=== PATIENT | male | born 1960 | race Caucasian/White ===

== ENCOUNTER 2019-03-22 17:08 | Emergency (ER) | payer OTHER ==
[2019-03-22] MEDS ORDERED: Aspirin 81 MG Tab.Chew PO ONE (17:09)
[2019-03-22] MEDS ORDERED: Sodium Chloride 0.9% 2.5 ML Syringe FLUSH PRN (17:09)
[2019-03-22] MEDS ORDERED: Sodium Chloride 0.9% 10 ML Syringe FLUSH PRN (17:09)
[2019-03-22] MEDS ORDERED: Tenecteplase 50 MG Kit IV STA (17:10)
[2019-03-22] MEDS ORDERED: Clopidogrel 75 MG Tab PO ONE ×2 (17:11→17:14)
[2019-03-22] MEDS ORDERED: Heparin Sodium 5,000 Units/ML Vial IVPUSH ONE (17:11)
[2019-03-22] MEDS ORDERED: Heparin Sod,Pork In 0.45% Nacl 25,000 UNIT/500 ML IV.SOLN IV SCH (17:15)
[2019-03-22] MEDS ORDERED: Tenecteplase 50 MG Kit ONE (17:18)
[2019-03-22] MEDS ORDERED: Morphine 4 MG/ML Syringe IVPUSH ONE (17:19)
[2019-03-22] MEDS ORDERED: Sodium Chloride 0.9% 1,000 ML IV ONE (17:21)
--- NOTE | 2019-03-22 17:24 | EDM.PDOC ---
ED HPI GENERAL MEDICAL PROBLEM - General Chief Complaint: Chest Pain Stated Complaint: CHEST PAIN Time Seen by Provider: 03/22/19 17:19 Source of Information: Reports: Patient History Limitations: Reports: No Limitations - History of Present Illness INITIAL COMMENTS - FREE TEXT/NARRATIVE: HISTORY AND PHYSICAL: History of present illness: Patient is a 58-year-old male who presents to the emergency room with complaints of midsternal chest pain that radiates down his left arm which started approximately 15 minutes prior to arrival. He states the pain had a sudden onset and was not precipitated by any physical activity. He became very diaphoretic, near syncopal and nauseated. He denies any previous history of heart disease. States he is currently taking prednisone for a interstitial lung condition. Otherwise he is healthy and takes no medications on a daily basis. Patient denies any fever, chills, headache, change in vision, syncope. Denies any back pain or cough. Denies any abdominal pain, vomiting, diarrhea, constipation or dysuria. Has not noted any blood in urine or stool. Patient has been eating and drinking appropriately. Review of systems: As per history of present illness and below otherwise all systems reviewed and negative. Past medical history: As per history of present illness and as reviewed below otherwise noncontributory. Surgical history: As per history of present illness and as reviewed below otherwise noncontributory. Social history: See social history for further information Family history: As per history of present illness and as reviewed below otherwise noncontributory. Physical exam: General: Well-developed and well-nourished 58-year-old male. Diaphoretic and in moderate distress. HEENT: Atraumatic, normocephalic, pupils equal and reactive bilaterally, negative for conjunctival pallor or scleral icterus, mucous membranes moist, TMs normal bilaterally, throat clear, neck supple, nontender, trachea midline. No drooling or trismus noted. No meningeal signs. No hot potato voice noted. Lungs: Clear to auscultation, breath sounds equal bilaterally, chest nontender. Heart: S1S2, regular rate and rhythm with tachycardia Abdomen: Soft, nondistended, nontender. Negative for masses. Negative for costovertebral tenderness. Pelvis: Stable nontender. Skin: Intact, warm, and diaphoretic. No lesions or rashes noted. Extremities: Atraumatic, moves all extremities per self without difficulty or deficits, ambulatory. Neurovascular unremarkable. Neuro: Awake, alert, oriented. Cranial nerves II through XII unremarkable. Cerebellum unremarkable. Motor and sensory unremarkable throughout. Exam nonfocal. Notes: Dr Robertson was directly involved in this case. EKG shows ST elevation in V2, V3, V4 - patient is aware of the significance of the EKG and patient presentation and the likelihood of needing transfer to a larger facility. He is agreeable to plan of care. We did review contraindications for receiving TNKase. Patient meets criteria. Dr Vaughan, rate and cost analyst at [facility], was consulted on this case. Patient will be given TNKase prior to transfer. Diagnostics: CBC, CMP, INR, CXR, Troponin Therapeutics: IV fluids, ASA, Heparin, Plavix, TNkase, Morphine Impression: STEMI Plan: Transfer to [facility] via [facility] Definitive disposition and diagnosis as appropriate pending reevaluation and review of above. Onset: Today Duration: Minutes: Location: Reports: Chest Chest Pain Score (Numeric/FACES): 7 - Related Data Allergies Allergy/AdvReac Type Severity Reaction Status Date / Time No Known Allergies Allergy Verified 03/22/19 17:14 Past Medical History - Past Health History Medical/Surgical History: Denies Medical/Surgical History - Infectious Disease History Infectious Disease History: Reports: None Social & Family History - Family History Family Medical History: Noncontributory - Tobacco Use Smoking Status *Q: Never Smoker - Recreational Drug Use Recreational Drug Use: No ED ROS GENERAL - Review of Systems Review Of Systems: ROS reveals no pertinent complaints other than HPI. ED EXAM, GENERAL - Physical Exam Exam: See Below (See dictation) Course - Vital Signs Last Recorded V/S: Last Vital Signs Temp 98.3 F 03/22/19 17:14 Pulse 114 H 03/22/19 17:14 Resp 20 03/22/19 17:14 BP 152/104 H 03/22/19 17:14 Pulse Ox 99 03/22/19 17:14 - Orders/Labs/Meds Orders: Active Orders 24 hr Category Date Time Status Cardiac Monitoring [RC] . DIRECTED Care 03/22/19 17:09 Active EKG Documentation Completion [RC] STAT Care 03/22/19 17:10 Active Oxygen Therapy [RC] ASDIRECTED Care 03/22/19 17:09 Active Chest 1V Frontal [CR] Stat Exams 03/22/19 17:09 Ordered CBC WITH AUTO DIFF [HEME] Stat Lab 03/22/19 17:09 Ordered COMPREHENSIVE METABOLIC PN,CMP [CHEM] Stat Lab 03/22/19 17:09 Ordered INR,PT,PROTHROMBIN TIME [COAG] Stat Lab 03/22/19 17:09 Ordered TROPONIN I [CHEM] Stat Lab 03/22/19 17:09 Ordered Heparin Sod,Pork In 0.45% Nacl [Heparin-1/2Ns 25,000 Med 03/22/19 17:15 Ordered Units/500] 25,000 unit in 500 ml IV TITRATE Nitroglycerin/D5W [Nitroglycerin 25 MG/D5W 250 ML] Med 03/22/19 17:30 Ordered 25 mg in 250 ml IV TITRATE Sodium Chloride 0.9% [Normal Saline] 1,000 ml Med 03/22/19 17:21 Active IV .Bolus Sodium Chloride 0.9% [Saline Flush] Med 03/22/19 17:09 Active 10 ml FLUSH ASDIRECTED PRN Sodium Chloride 0.9% [Saline Flush] Med 03/22/19 17:09 Active 2.5 ml FLUSH ASDIRECTED PRN Saline Lock Insert [OM.PC] Stat Oth 03/22/19 17:09 Ordered Medication Orders Heparin Sodium/Sodium Chloride (Heparin-1/2ns 25,000 Units/500) 25,000 unit in 500 mls @ 0 mls/hr IV TITRATE IRINA; Protocol Nitroglycerin/Dextrose (Nitroglycerin 25 Mg/D5w 250 Ml) 25 mg in 250 mls @ 3 mls/hr IV TITRATE IRINA; Protocol Sodium Chloride (Normal Saline) 1,000 mls @ 999 mls/hr IV .Bolus ONE Stop: 03/22/19 18:21 Last Admin: 03/22/19 17:23 Dose: 999 mls/hr Sodium Chloride (Saline Flush) 10 ml FLUSH ASDIRECTED PRN PRN Reason: Keep Vein Open Sodium Chloride (Saline Flush) 2.5 ml FLUSH ASDIRECTED PRN PRN Reason: Keep Vein Open Meds: Medications Generic Name Dose Route Start Last Admin Trade Name Freq PRN Reason Stop Dose Admin Heparin Sodium/Sodium Chloride 25,000 unit in 500 mls @ 0 mls/hr 03/22/19 17: 15 Heparin-1/2ns 25,000 Units/500 IV TITRATE IRINA Protocol 12 UNITS/KG/HR Nitroglycerin/Dextrose 25 mg in 250 mls @ 3 mls/hr 03/22/19 17:30 Nitroglycerin 25 Mg/D5w 250 Ml IV TITRATE IRINA Protocol 5 MCG/MIN Sodium Chloride 1,000 mls @ 999 mls/hr 03/22/19 17:21 03/22/19 17:23 Normal Saline IV 03/22/19 18:21 999 mls/hr .Bolus ONE Administration Sodium Chloride 10 ml 03/22/19 17:09 Saline Flush FLUSH ASDIRECTED PRN Keep Vein Open Sodium Chloride 2.5 ml 03/22/19 17:09 Saline Flush FLUSH ASDIRECTED PRN Keep Vein Open Discontinued Medications Generic Name Dose Route Start Last Admin Trade Name Freq PRN Reason Stop Dose Admin Aspirin 324 mg 03/22/19 17:09 03/22/19 17:21 Aspirin PO 03/22/19 17:10 324 mg ONETIME ONE Administration Clopidogrel Bisulfate 600 mg 03/22/19 17:11 03/22/19 17:20 Plavix PO 03/22/19 17:12 Not Given ONETIME ONE Clopidogrel Bisulfate 300 mg 03/22/19 17:14 03/22/19 17:19 Plavix PO 03/22/19 17:15 300 mg ONETIME ONE Administration Heparin Sodium (Porcine) 4,000 units 03/22/19 17:11 03/22/19 17:19 Heparin Sodium IVPUSH 03/22/19 17:12 4,000 units ONETIME ONE Administration Morphine Sulfate 4 mg 03/22/19 17:19 03/22/19 17:21 Morphine IVPUSH 03/22/19 17:20 4 mg ONETIME ONE Administration Tenecteplase 50 mg 03/22/19 17:10 03/22/19 17:24 Tnkase IV 03/22/19 17:11 50 mg NOW STA Administration Protocol Tenecteplase Confirm 03/22/19 17:18 Tnkase Administered 03/22/19 17:19 Dose 50 mg .ROUTE .STK-MED ONE Departure - Departure Time of Disposition: 17:24 Disposition: DC/Tfer to Acute Hospital 02 Reason for Transfer *Q: Primary PCI Indicated Clinical Impression: ST elevation (STEMI) myocardial infarction Qualifiers: Involved coronary artery: unspecified coronary artery Qualified Code(s): I21.3 - ST elevation (STEMI) myocardial infarction of unspecified site Forms: ED Department Discharge - My Orders Last 24 Hours: My Active Orders 03/22/19 17:09 Cardiac Monitoring [RC] . DIRECTED Oxygen Therapy [RC] ASDIRECTED Chest 1V Frontal [CR] Stat CBC WITH AUTO DIFF [HEME] Stat COMPREHENSIVE METABOLIC PN,CMP [CHEM] Stat INR,PT,PROTHROMBIN TIME [COAG] Stat TROPONIN I [CHEM] Stat Sodium Chloride 0.9% [Saline Flush] 10 ml FLUSH ASDIRECTED PRN Sodium Chloride 0.9% [Saline Flush] 2.5 ml FLUSH ASDIRECTED PRN Saline Lock Insert [OM.PC] Stat 03/22/19 17:10 EKG Documentation Completion [RC] STAT 03/22/19 17:15 Heparin Sod,Pork In 0.45% Nacl [Heparin-1/2Ns 25,000 Units/500] 25,000 unit in 500 ml IV TITRATE 03/22/19 17:30 Nitroglycerin/D5W [Nitroglycerin 25 MG/D5W 250 ML] 25 mg in 250 ml IV TITRATE - Assessment/Plan Last 24 Hours: My Active Orders 03/22/19 17:09 Cardiac Monitoring [RC] . DIRECTED Oxygen Therapy [RC] ASDIRECTED Chest 1V Frontal [CR] Stat CBC WITH AUTO DIFF [HEME] Stat COMPREHENSIVE METABOLIC PN,CMP [CHEM] Stat INR,PT,PROTHROMBIN TIME [COAG] Stat TROPONIN I [CHEM] Stat Sodium Chloride 0.9% [Saline Flush] 10 ml FLUSH ASDIRECTED PRN Sodium Chloride 0.9% [Saline Flush] 2.5 ml FLUSH ASDIRECTED PRN Saline Lock Insert [OM.PC] Stat 03/22/19 17:10 EKG Documentation Completion [RC] STAT 03/22/19 17:15 Heparin Sod,Pork In 0.45% Nacl [Heparin-1/2Ns 25,000 Units/500] 25,000 unit in 500 ml IV TITRATE 03/22/19 17:30 Nitroglycerin/D5W [Nitroglycerin 25 MG/D5W 250 ML] 25 mg in 250 ml IV TITRATE
[2019-03-22] MEDS ORDERED: Nitroglycerin/D5W 25 MG/250 ML BOTTLE ONE (17:26)
[2019-03-22] MEDS ORDERED: Ondansetron 4 MG/2 ML SDV IVPUSH ONE (17:30)
[2019-03-22] MEDS ORDERED: Nitroglycerin/D5W 25 MG/250 ML BOTTLE IV SCH (17:30)
[2019-03-22] MEDS ORDERED: Ondansetron 4 MG/2 ML SDV ONE (17:31)
[2019-03-22 18:01] LABS: CARBON DIOXIDE,CO2 21.8 mmol/L (21.0-32.0)
--- NOTE | 2019-03-22 19:07 | CR ---
Indication: Chest pain Technique: Chest 1 view Comparison: None Findings/Impression: Normal cardiac size. Increased soft tissue density in the right paratracheal region. Consider IV contrast-enhanced chest CT for further evaluation. Increased interstitial markings throughout the lungs may be chronic in nature. Minimal patchy atelectasis or infiltrate at the right lung base. No effusion or pneumothorax. No acute osseous abnormality. Dictated by Sultana Gonzalez MD @ Mar 22 2019 7:05PM Signed by Dr. Sultana Gonzalez @ Mar 22 2019 7:06PM
== END 2019-03-22 17:42 ==
LOC: MW.ED 17:08
DX: I21.3 ST elevation (STEMI) myocardial infarction of unspecified site (principal)
CPT/HCPCS: 36415; 71045; 80053; 84484; 85025; 85610; 93005; 96372; 96374; 96375; 99285; A9270; J1644; J2270; J2405; J3101; J3490; J7040